=== PATIENT | female | born 1985 | race Caucasian/White ===

== ENCOUNTER 2019-02-23 16:36 | Emergency (ER) | payer OTHER ==
[2019-02-23] MEDS ORDERED: NA CHLORIDE 0.9% 1,000 ML ONE (17:01)
[2019-02-23 17:18] LABS: Urine Blood 3+ (NEG); Urine Glucose NEGATIVE (NEG); Urine Protein TRACE (NEG); Urine Specific Gravity >1.030 (1.005-1.030); Urine pH 5.5 (5.0-7.0)
--- NOTE | 2019-02-23 17:29 | RAD REPORT ---
EXAM DESCRIPTION: CT - Head Brain Wo Cont - 02/23/2019 5:10 pm CLINICAL HISTORY: Numbness COMPARISON: None. TECHNIQUE: Computed axial tomography of the head was obtained. IV contrast was not requested. All CT scans are performed using dose optimization technique as appropriate and may include automated exposure control or mA/KV adjustment according to patient size. FINDINGS: An intracranial bleed is not seen . The ventricles are normal in caliber. No extra-axial fluid collection is noted. Fluid within the sinuses/ mastoids is not seen. IMPRESSION: No acute intracranial abnormality is seen. If patient's symptoms persist MRI of the bra in would be recommended.
[2019-02-23 17:45] LABS: Barbiturates NEGATIVE (NEGATIVE); Benzodiazepines NEGATIVE (NEGATIVE); Cocaine NEGATIVE (NEGATIVE); METHAMPHETAM POSITIVE (NEGATIVE); Methadone NEGATIVE (NEGATIVE); Opiates NEGATIVE (NEGATIVE); Phencyclidine NEGATIVE (NEGATIVE); THC Cannibis NEGATIVE (NEGATIVE)
[2019-02-23 17:48] LABS: Absolute Lymphocytes (CBC) 2.5 K/uL (0.7-4.9); Hematocrit 29.4 % (36.0-45.0); Lymphocytes % 36.3 % (15.3-44.8); MPV 7.8 fL (7.6-11.3); RBC Red Blood Cell Count 4.11 M/uL (3.86-4.86)
[2019-02-23 18:01] LABS: ALT/SGPT 20 U/L (12-78); AST/SGOT 15 U/L (15-37); Albumin 3.4 g/dL (3.4-5.0); Alkaline Phosphatase 120 U/L (45-117); BUN Blood Urea Nitrogen 16 mg/dL (7-18); Bicarbonate 29 mmol/L (21-32); Bilirubin Direct < 0.1 mg/dL (0-0.2); Glucose Level 105 mg/dL (74-106); Magnesium 2.1 mg/dL (1.8-2.4); Protein, Total 6.9 g/dL (6.4-8.2); Sodium Level 140 mmol/L (136-145); Troponin (Emerg Dept Use Only) < 0.02 ng/mL (0.0-0.045)
[2019-02-23 18:02] LABS: Bilirubin Total < 0.1 mg/dL (0.2-1.0)
[2019-02-23 18:11] LABS: Blood Morphology Comment NOT SEEN (NOT SEEN); Platelet Estimate ADEQ; Urine White Blood Cell Casts OK
--- NOTE | 2019-02-23 18:20 | ER ---
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 Transition of care: patient was not received from another setting of care. Onset of symptoms was February 23, 2019. Risk Assessment: Do you want to hurt yourself or someone else? Patient reports no desire to harm self or others. Initial Sepsis Screen: Does the patient meet any 2 criteria? No. Patient's initial sepsis screen is negative. Does the patient have a suspected source of infection? No. Patient's initial sepsis screen is negative. Care prior to arrival: None. 16:40 Method Of Arrival: Ambulatory la1 16:40 Acuity: MARIE 3 la1 Triage Assessment: 16:55 General: Appears in no apparent distress. comfortable, Behavior is calm, cooperative. 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 - Social history:: Smoking status: Patient uses tobacco products, smokes one pack cigarettes per day. - Ebola Screening: : No symptoms or risks identified at this time. Screenin:55 Abuse screen: Denies threats or abuse. Nutritional screening: No deficits noted. rb1 Tuberculosis screening: No symptoms or risk factors identified. Fall Risk None identified. Assessment: 16:55 General: Denies fever, Pt. reports that she is on the 4 th day of detox for rb1 Methamphetamine. She is currently staying at the [facility].. Pain: Denies pain. Neuro: Level of Consciousness is awake, alert, obeys commands, Oriented to person, place, time, situation, Reports numbness in bilateral hands and legs. Cardiovascular: Capillary refill < 3 seconds is brisk in bilateral fingers. Respiratory: Airway is patent Respiratory effort is even, unlabored, Respiratory pattern is regular, symmetrical. GI: No signs and/or symptoms were reported involving the gastrointestinal system. : No signs and/or symptoms were reported regarding the genitourinary system. Derm: Skin is pink, warm \T\ dry. Musculoskeletal: Range of motion: intact in all extremities. 17:55 Reassessment: Patient appears in no apparent distress at this time. No changes from [facility] previously documented assessment. 18:13 Reassessment: Pt was given a sandwich, chips, and soda to eat. Sales Apprentice from [address] is at the bedside. 18:37 Reassessment: Patient appears in no apparent distress at this time. Patient and/or rb1 family updated on plan of care and expected duration. Pain level reassessed. Patient is alert, oriented x 3, equal unlabored respirations, skin warm/dry/pink. Patient denies pain at this time. Vital Signs: 16:41 BP 110 / 70; Pulse 84; Resp 16; Temp 97.2; Pulse Ox 100% on R/A; Weight 62.14 kg; la1 Height 5 ft. 2 in. (157.48 cm); 17:40 BP 109 / 68; Pulse 80; Resp 17; Pulse Ox 100% on R/A; rb1 18:37 BP 111 / 79; Pulse 75; Resp 16; Pulse Ox 99% on R/A; Pain 0/10; rb1 16:41 Body Mass Index 25.06 (62.14 kg, 157.48 cm) la1 ED Course: 16:39 Patient arrived in ED. as 16:41 Triage completed. la1 16:42 Arm band placed on left wrist. la1 16:43 Ángel Atwood PA is PHCP. cp 16:43 León Bridges MD is Attending Physician. cp 16:55 Denisse Garza, STEPHANY is Primary Nurse. rb1 16:55 Patient has correct armband on for positive identification. Bed in low position. Call [facility] light in reach. Side rails up X 1. Pulse ox on. NIBP on. 17:10 CT completed. Patient tolerated procedure well. Patient moved back from CT. bq 17:10 CT Head Brain wo Cont In Process Unspecified. EDMS 17:21 Urine collected: clean catch specimen, clear, EKG done, by ED staff, reviewed by León Bridges MD. 18:39 No provider procedures requiring assistance completed. IV discontinued, intact, rb1 bleeding controlled, No redness/swelling at site. Pressure dressing applied. Administered Medications: 17:27 Drug: NS 0.9% 1000 ml Route: IV; Rate: 1 bolus; Site: right forearm; rb1 18:33 Follow up: IV Status: Completed infusion rb1 Outcome: 18:20 Discharge ordered by . cp 18:39 Discharged to Rehab Facility rb1 18:39 Condition: stable 18:39 Discharge instructions given to patient, Instructed on discharge instructions, follow up and referral plans. Demonstrated understanding of instructions, follow-up care, Prescriptions given X none 18:40 Patient left the ED. rb1 Signatures: Dispatcher [employer] EDIN Samantha Koch Amelia as Attema, Lee, RN RN la1 Ángel Atwood PA PA cp Barber, Rebecca, RN RN rb1 Dianelys Goodwin
--- NOTE | 2019-02-23 18:21 | EDPHYS ---
Physician Documentation [facility] Name: Jacquie Nuñez Age: 34 yrs Sex: Female : 1985 Arrival Date: 02/23/2019 Time: 16:39 Bed 15 Private MD: ED Physician León Bridges HPI: 02/23 17:00 This 34 yrs old Female presents to ER via Ambulatory with complaints of cp Numbness. 17:00 The patient's problem is reported as paresthesias, right hand and left hand and right cp leg and left leg, headache. Onset: The symptoms/episode began/occurred today. Duration: This was a single incident. Associated signs and symptoms: Pertinent negatives: abdominal pain, chest pain, diaphoresis, dizziness, lightheadedness, palpitations, vomiting. Severity of symptoms: in the emergency department the symptoms are unchanged despite home interventions. Patient's baseline: Neuro: alert and fully oriented, Motor: no deficits, Ambulation: walks without assistance, Speech: normal. Patient reports she is currently at detox center for methamphetamine use and last use was 4 days ago. 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 - Social history:: Smoking status: Patient uses tobacco products, smokes one pack cigarettes per day. - Ebola Screening: : No symptoms or risks identified at this time. ROS: 17:08 Constitutional: Negative for body aches, chills, fever, poor PO intake. cp 17:08 Eyes: Negative for injury, pain, redness, and discharge. cp 17:08 ENT: Negative for drainage from ear(s), ear pain, sore throat, difficulty swallowing, difficulty handling secretions. 17:08 Cardiovascular: Negative for chest pain, edema, palpitations. 17:08 Respiratory: Negative for cough, shortness of breath, wheezing. 17:08 Abdomen/GI: Negative for abdominal pain, nausea, vomiting, and diarrhea, black/tarry stool, rectal bleeding. 17:08 Back: Negative for pain at rest, pain with movement. 17:08 Skin: Negative for cellulitis, rash. 17:08 Neuro: Positive for headache, numbness, tingling, of the right hand, left hand, right leg and left leg, Negative for altered mental status, dizziness, weakness. 17:08 All other systems are negative. Exam: 17:05 ECG was reviewed by the Attending Physician. cp 17:15 Constitutional: The patient appears in no acute distress, alert, awake, cp non-diaphoretic, non-toxic, well developed, well nourished. 17:15 Head/Face: Normocephalic, atraumatic. cp 17:15 Eyes: Periorbital structures: appear normal, Pupils: equal, round, and reactive to light and accomodation, Extraocular movements: intact throughout, Conjunctiva: normal, no exudate, no injection, Lids and lashes: appear normal, bilaterally. 17:15 ENT: External ear(s): are unremarkable, Ear canal(s): are normal, clear, TM's: dullness, bilaterally, Nose: is normal, Mouth: Lips: moist, Oral mucosa: pink and intact, moist, Posterior pharynx: is normal, airway is patent, no erythema, no exudate. 17:15 Neck: ROM/movement: is normal, is supple, without pain, no range of motions limitations, no nuchal rigidity. 17:15 Chest/axilla: Inspection: normal, Palpation: is normal, no crepitus, no tenderness. 17:15 Cardiovascular: Rate: normal, Rhythm: regular, Heart sounds: murmur, not appreciated, Edema: is not appreciated, JVD: is not appreciated. 17:15 Respiratory: the patient does not display signs of respiratory distress, Respirations: normal, no use of accessory muscles, no retractions, no splinting, no tachypnea, labored breathing, is not present, Breath sounds: are clear throughout, no decreased breath sounds, no stridor, no wheezing. 17:15 Abdomen/GI: Inspection: abdomen appears normal, Palpation: abdomen is soft and non-tender, in all quadrants, rebound tenderness, is not appreciated, voluntary guarding, is not appreciated. 17:15 Back: pain, is absent, ROM is normal. 17:15 Skin: cellulitis, is not appreciated, no rash present. 17:15 Neuro: Orientation: to person, place \T\ time. Mentation: is normal, Cerebellar function: cp is grossly normal, Motor: moves all fours, strength is normal, Sensation: no obvious gross deficits, Gait: is steady, at a normal pace, without difficulty. 17:33 Radiologist reports: no acute findings cp Vital Signs: 16:41 BP 110 / 70; Pulse 84; Resp 16; Temp 97.2; Pulse Ox 100% on R/A; Weight 62.14 kg; la1 Height 5 ft. 2 in. (157.48 cm); 17:40 BP 109 / 68; Pulse 80; Resp 17; Pulse Ox 100% on R/A; rb1 18:37 BP 111 / 79; Pulse 75; Resp 16; Pulse Ox 99% on R/A; Pain 0/10; rb1 16:41 Body Mass Index 25.06 (62.14 kg, 157.48 cm) la1 MDM: 16:45 Patient medically screened. cp 17:00 Differential diagnosis: TIA, metabolic disorder, drug effects. cp 18:20 Data reviewed: vital signs, nurses notes, lab test result(s), EKG, radiologic studies, cp CT scan. 18:20 Test interpretation: by ED physician or midlevel provider: ECG. Counseling: I had a cp detailed discussion with the patient and/or guardian regarding: the historical points, exam findings, and any diagnostic results supporting the discharge/admit diagnosis, lab results, radiology results, to return to the emergency department if symptoms worsen or persist or if there are any questions or concerns that arise at home. Response to treatment: the patient's symptoms have markedly improved after treatment, VSS. Symptoms improved. Patient appears in no acute distress. Will discharge back to detox center for continued observation. 02/23 16:46 Order name: UDS; Complete Time: 17:45 02/23 17:47 Interpretation: Abnormal: METHAMPHETAMINE POSITIVE. 02/23 16:53 Order name: Basic Metabolic Panel; Complete Time: 18:07 02/23 18:12 Interpretation: Reviewed. 02/23 16:53 Order name: CBC with Diff; Complete Time: 18:10 02/23 18:12 Interpretation: Normal except: HGB 9.4; HCT 29.4; MCV 71.5; MCH 23.0; RDW 18.8. 02/23 16:53 Order name: LFT's; Complete Time: 18:07 02/23 18:10 Interpretation: Normal except: ALK 120; BILIT < 0.1; A/G 1.0. 02/23 16:53 Order name: Magnesium; Complete Time: 18:07 02/23 16:53 Order name: Troponin (emerg Dept Use Only); Complete Time: 18:07 02/23 16:44 Order name: EKG; Complete Time: 16:44 02/23 16:44 Order name: EKG - Nurse/Tech; Complete Time: 17:30 02/23 16:44 Order name: Urine Dipstick-Ancillary (obtain specimen); Complete Time: 17:30 02/23 16:53 Order name: CT Head Brain wo Cont; Complete Time: 17:31 02/23 17:33 Interpretation: Report reviewed. 02/23 17:15 Order name: Urine Dipstick--Ancillary (enter results); Complete Time: 17:30 ms 02/23 17:33 Interpretation: Normal except: UBLD 3+; UESTR TRACE. 02/23 17:15 Order name: Urine --Ancillary (enter results); Complete Time: 17:30 ms 02/23 18:13 Interpretation: Reviewed. 02/23 17:59 Order name: CBC Smear Scan; Complete Time: 18:17 EDMS 02/23 16:44 Order name: Urine Test (obtain specimen); Complete Time: 17:30 02/23 16:53 Order name: Cardiac monitoring; Complete Time: 17:30 02/23 16:53 Order name: IV Saline Lock; Complete Time: 17:29 02/23 16:53 Order name: Labs collected and sent; Complete Time: 17:29 02/23 16:53 Order name: O2 Per Protocol; Complete Time: 17:29 02/23 16:53 Order name: O2 Sat Monitoring; Complete Time: 17:29 cp EC:05 Rate is 73 beats/min. Rhythm is regular. MS interval is normal. QRS interval is normal. cp QT interval is normal. T waves are Inverted in leads aVR, V1. Interpreted by me. Reviewed by me. Administered Medications: 17:27 Drug: NS 0.9% 1000 ml Route: IV; Rate: 1 bolus; Site: right forearm; rb1 18:33 Follow up: IV Status: Completed infusion rb1 Disposition: 18:43 Co-signature as Attending Physician, León Bridges MD. rn Disposition: 02/23/19 18:20 Discharged to Home. Impression: Anemia in chronic diseases classified elsewhere, Paresthesia of skin, Adverse effect of amphetamines. - Condition is Stable. - Discharge Instructions: Iron Deficiency Anemia, Adult, Paresthesia. - Medication Reconciliation Form, Thank You Letter, Antibiotic Education, Prescription Opioid Use form. - Follow up: Private Physician; When: 1 - 2 days; Reason: Recheck today's complaints. - Problem is new. - Symptoms have improved. Signatures: Dispatcher [employer] EDMS León Bridges MD MD rn Greg Baker RN RN la1 Ángel Atwood PA PA cp Barber, Rebecca RN RN rb1 Corrections: (The following items were deleted from the chart) 18:40 18:20 02/23/2019 18:20 Discharged to Home. Impression: Anemia in chronic diseases rb1 classified elsewhere; Paresthesia of skin; Adverse effect of amphetamines. Condition is Stable. Forms are Medication Reconciliation Form, Thank You Letter, Antibiotic Education, Prescription Opioid Use. Follow up: Private Physician; When: 1 - 2 days; Reason: Recheck today's complaints. Problem is new. Symptoms have improved. cp
[2019-02-23 18:47] VITALS: TEMP 97.2
[2019-02-23 18:49] VITALS: BP 111/79; O2SAT 99
--- NOTE | 2019-02-23 19:30 | EKG ---
Test Date: 2019-02-23 Test Time: 16:57:12 Surgical Aide: NAVEEN MEASUREMENT RESULTS: Intervals: Rate: 73 PA: 132 QRSD: 80 QT: 392 QTc: 431 [place]: P: 48 PA: 132 QRS: 38 T: 75 INTERPRETIVE STATEMENTS: Normal sinus rhythm Normal ECG No previous ECG available for comparison Electronically Signed On 02-23-19 19:29:14 CDT by Papito Browne
== END 2019-02-23 18:40 | disposition home or self-care (01) ==
LOC: ER 16:36
DX: R20.2 Paresthesia of skin (principal); T43.621A Poisoning by amphetamines, accidental (unintentional), initial encounter; Y92.9 Unspecified place or not applicable; D63.8 Anemia in other chronic diseases classified elsewhere; F17.210 Nicotine dependence, cigarettes, uncomplicated
CPT/HCPCS: 93005; 85025; 80048; 36415; 83735; 81025; 80076; 80307 ×8; 81003; 84484; 70450; 96360; 99284; J7030